=== PATIENT | female | born 1950 | race Caucasian/White ===

== ENCOUNTER 2024-08-09 14:08 | Outpatient (CLI) | payer BC, SELFPAY | END 2024-08-09 14:09 | disposition home or self-care (01) | LOC: NFLDREF 18:11 | PROVIDERS: Visit Provider Nurse Practitioner Family | DX: M54.9 Dorsalgia, unspecified (principal); R82.90 Unspecified abnormal findings in urine | CPT/HCPCS: 87086 ==